=== PATIENT | female | born 1950 | race Caucasian/White ===

== ENCOUNTER 2023-07-17 19:42 | Emergency (ER) | payer MEDICARE ==
[~2023-07-17] VITALS: Ht 162.6 cm; Wt 63.5 kg
[2023-07-17 22:29] LABS: HEMOGLOBIN 12.6 g/dL (12.0-18.0); MCHC 34.3 g/dl (30-36)
[2023-07-17 22:32] LABS: BASOPHILS 0.2 % (0-2); EOSINOPHILS 0.1 % (0-6); HEMATOCRIT 36.7 % (35.0-50.0); LYMPHOCYTES 19.3 % (24-44); MCH 32.7 (27-36); MCV 95.2 fl (81-99); MONOCYTES 16.6 % (0-12); NEUTROPHILS 63.8 % (39-80); PLATELET COUNT 202 K/uL (140-440); RBC 3.85 M/ul (4.3-5.7); RDW 13.1 (10.5-15.0)
[2023-07-17 22:45] LABS: ALBUMIN 3.7 g/dL (3.4-5.0); ALBUMIN/GLOBULIN RATIO 1.06 (1.1-2.4); ANION GAP 10.7 (7-21); BILIRUBIN, TOTAL 0.5 ng/dL (0.2-1.0); BUN/CREATININE RATIO 23.44 (6.0-28.6); CALCIUM 9.7 mg/dL (8.5-10.1); CREATININE, SERUM 1.45 mg/dL (0.55-1.02); POTASSIUM 3.7 mmol/L (3.5-5.1); PROTEIN, TOTAL 7.2 g/dL (6.4-8.2)
[2023-07-17 22:56] LABS: BILIRUBIN, URINE NEGATIVE (negative); BLOOD/HGB, URINE NEGATIVE (Negative); KETONE, URINE NEGATIVE (Negative); LEUK ESTERASE, URINE NEGATIVE (negative); NITRITE, URINE POSITIVE (negative); PH, URINE 5.5 (5-7)
[2023-07-17 23:01] LABS: EPITHELIAL CELLS, URINE SQUAMOUS 1+ /lpf (0-1+)
[2023-07-17 23:02] LABS: BACTERIA, URINE RARE /hpf (negative); CASTS, URINE NONE SEEN \\lpf; CRYSTALS, URINE NONE SEEN (0-1+); REFLEX CULTURE, URINE No (No); WHITE BLOOD CELLS, URINE 0-1 /HPF (0-5)
[2023-07-17] MEDS ORDERED: NITROFURANTOIN MONOHYD MACROCR 100 MG CAP PO ONE (23:15)
[2023-07-17] MEDS ORDERED: MACROBID 100 M100 MG PO (23:16)
[2023-07-17 23:23] VITALS: BP 168/74
--- NOTE | 2023-07-18 21:06 | EKG ---
[facility] [address] [place] [address] Signed Atrial-paced rhythm with prolonged AV conduction Abnormal ECG No previous ECGs available Confirmed by Rush Hopson MD () on 07/18/2023 9:05:53 PM Electronically Signed By: RUSH HOPSON MD 07/18/232105 PATIENT NAME: BOWEN BARNETT Electrocardiogram DATE OF : 48 PHYSICIAN: RUSH HOPSON MD REPORT #: [id number] REPORT IS CONFIDENTIAL AND NOT TO BE RELEASED WITHOUT AUTHORIZATION
== END 2023-07-17 23:23 | disposition home or self-care (01) ==
LOC: ED 19:42
PROVIDERS: Internal Medicine
DX: N39.0 Urinary tract infection, site not specified (principal); Z66 Do not resuscitate; G30.9 Alzheimer's disease, unspecified; F02.80 Dementia in other diseases classified elsewhere, unspecified severity, without behavioral disturbance, psychotic disturbance, mood disturbance, and anxiety; Z88.5 Allergy status to narcotic agent; Z88.0 Allergy status to penicillin
CPT/HCPCS: 36415; 80053; 81001; 83735; 84484; 85025; 87088; 93005; 93010; 99285-25

== ENCOUNTER 2023-11-10 12:51 | Emergency (ER) | payer MEDICARE ==
[~2023-11-10] VITALS: Ht 162.6 cm; Wt 70.0 kg
[~2023-11-10 12:51] MED LIST: MACROBID 100 M100 MG PO
[2023-11-10] MEDS ORDERED: LEVOTHYROXINE75 MC1 PO (13:01)
[2023-11-10] MEDS ORDERED: CRANBERRY250 MG PO (13:01)
[2023-11-10] MEDS ORDERED: LOSARTAN POTASS50 MG PO (13:02)
[2023-11-10] MEDS ORDERED: METOPROLOL SUCC25 MG PO (13:02)
[2023-11-10] MEDS ORDERED: VITAMIN D250 MC1 PO (13:02)
[2023-11-10] MEDS ORDERED: TYLENOL325 MG PO (13:03)
[2023-11-10] MEDS ORDERED: KEPPRA750 MG PO (13:03)
[2023-11-10] MEDS ORDERED: QUETIAPINE FUMA50 MG PO (13:04)
[2023-11-10 14:06] VITALS: BP 179/49
== END 2023-11-10 14:06 | disposition home or self-care (01) ==
LOC: ED 12:51
DX: T17.928A Food in respiratory tract, part unspecified causing other injury, initial encounter (principal); W44.F3XA Food entering into or through a natural orifice, initial encounter; I10 Essential (primary) hypertension; E03.9 Hypothyroidism, unspecified; F03.90 Unspecified dementia, unspecified severity, without behavioral disturbance, psychotic disturbance, mood disturbance, and anxiety; Z88.5 Allergy status to narcotic agent; Z88.8 Allergy status to other drugs, medicaments and biological substances; Z79.890 Hormone replacement therapy; Z79.899 Other long term (current) drug therapy
CPT/HCPCS: 99283

== ENCOUNTER 2024-10-04 21:17 | Emergency (ER) | payer MEDICARE ==
[~2024-10-04] VITALS: Ht 162.6 cm; Wt 66.1 kg
[~2024-10-04 21:17] MED LIST changes: +CRANBERRY250 MG PO; +KEPPRA750 MG PO; +LEVOTHYROXINE75 MC1 PO; +LOSARTAN POTASS50 MG PO; +METOPROLOL SUCC25 MG PO; +QUETIAPINE FUMA50 MG PO; +TYLENOL325 MG PO; +VITAMIN D250 MC1 PO
[2024-10-04] MEDS ORDERED: NORVASC5 MG PO (21:26)
[2024-10-04] MEDS ORDERED: COL-RITE100 MG PO (21:26)
[2024-10-04 21:41] LABS: BASOPHILS 0.3 % (0-2); EOSINOPHILS 0.6 % (0-6); HEMATOCRIT 32.6 % (35.0-50.0); HEMOGLOBIN 11.7 g/dL (12.0-18.0); LYMPHOCYTES 22.7 % (24-44); MCHC 35.8 g/dl (30-36); MONOCYTES 9.1 % (0-12); NEUTROPHILS 67.3 % (39-80); PLATELET COUNT 220 K/uL (140-440); RBC 3.44 M/ul (4.3-5.7); RDW 12.6 (10.5-15.0)
[2024-10-04 22:01] LABS: ALBUMIN 3.4 g/dL (3.4-5.0); ALBUMIN/GLOBULIN RATIO 1.26 (1.1-2.4); ANION GAP 10.3 (7-21); BILIRUBIN, TOTAL 0.4 mg/dL (0.2-1.0); BUN/CREATININE RATIO 16.4 (6.0-28.6); CALCIUM 8.8 mg/dL (8.5-10.1); CREATININE, SERUM 1.89 mg/dL (0.55-1.02); MAGNESIUM 2.3 mg/dL (1.8-2.4); POTASSIUM 4.3 mmol/L (3.5-5.1); PROTEIN, TOTAL 6.1 g/dL (6.4-8.2)
[2024-10-04 22:30] VITALS: BP 121/63
--- NOTE | 2024-10-06 07:26 | EKG ---
[facility] [address] [facility] [place] [address] Signed AV dual-paced rhythm with frequent ventricular-paced complexes Abnormal ECG No previous ECGs available Confirmed by Maria Guadalupe Blanco MD ([id number]) on 10/06/2024 7:26:25 AM Electronically Signed By: MARIA GUADALUPE BLANCO MD 10/06/24 0726 PATIENT NAME: BOWEN BARNETT Electrocardiogram DATE OF : 48 PHYSICIAN: MARIA GUADALUPE BLANCO MD REPORT #: [id number] REPORT IS CONFIDENTIAL AND NOT TO BE RELEASED WITHOUT AUTHORIZATION
== END 2024-10-04 22:30 | disposition home or self-care (01) ==
LOC: ED 21:17
PROVIDERS: Family Medicine
DX: R09.89 Other specified symptoms and signs involving the circulatory and respiratory systems (principal); I10 Essential (primary) hypertension; E03.9 Hypothyroidism, unspecified; Z79.899 Other long term (current) drug therapy; Z88.5 Allergy status to narcotic agent; Z88.8 Allergy status to other drugs, medicaments and biological substances
CPT/HCPCS: 36415; 80053; 83735; 85025; 93005; 93010; 99285

== ENCOUNTER 2025-01-15 18:51 | Observation (INO) | payer MEDICARE, OTHER ==
[~2025-01-15] VITALS: Ht 162.6 cm; Wt 65.2 kg
[~2025-01-15 18:51] MED LIST changes: +COL-RITE100 MG PO; +COZAAR100 MG PO; -LEVOTHYROXINE75 MC1 PO; +LEVOTHYROXINE75 MCG PO; -LOSARTAN POTASS50 MG PO; +NORVASC10 MG PO
[2025-01-15 19:09] LABS: BASOPHILS 0.2 % (0.1-1.2); EOSINOPHILS 1.4 % (0.7-5.8); LYMPHOCYTES 22.8 % (19.3-51.7); MCH 33.2 PG (25.6-32.2); MCHC 33.8 g/dL (32.2-35.5); MCV 98.3 fL (79.4-94.8); MONOCYTES 9.8 % (4.7-12.5); NEUTROPHILS 65.4 % (34.0-71.1); RBC 3.46 M/uL (3.93-5.22)
[2025-01-15 19:23] LABS: INR 1.04 (0.80-1.30); PROTIME 12.9 Sec (11.2-14.2)
[2025-01-15 19:25] LABS: ALT (SGPT) 22.0 U/L (14-59); AST (SGOT) 12.0 U/L (15-37); GLOMERULAR FILTRATION RATE,EST 42.0 mL/min (>60); PROTEIN, TOTAL 6.4 g/dL (6.4-8.2); UREA NITROGEN 34.0 mg/dL (7-18)
[2025-01-15 20:17] LABS: BLOOD/HGB, URINE NEGATIVE (Negative); KETONE, URINE NEGATIVE (Negative); LEUK ESTERASE, URINE SMALL (negative); NITRITE, URINE POSITIVE (negative)
[2025-01-15 20:22] LABS: EPITHELIAL CELLS, URINE SQUAMOUS 1+ /lpf (0-1+)
[2025-01-15 20:23] LABS: BACTERIA, URINE 3+ /hpf (negative); CASTS, URINE NONE SEEN \\lpf; CRYSTALS, URINE NONE SEEN (0-1+); REFLEX CULTURE, URINE Yes (No)
[2025-01-15] MEDS ORDERED: AZITHROMYCIN 500 MG in DEXTROSE 5% 250 ML IV ONE (21:15)
[2025-01-15] MEDS ORDERED: ASPIRIN 81 MG CHEW PO ONE (21:15)
[2025-01-15] MEDS ORDERED: CLOPIDOGREL BISULFATE 75 MG TAB PO ONE (21:15)
[2025-01-15 22:04] VITALS: BP 158/64
[2025-01-15] MEDS ORDERED: levETIRAcetam 500 MG TAB PO SCH (22:07)
[2025-01-15] MEDS ORDERED: ACETAMINOPHEN 325 MG TAB PO PRN (22:15)
[2025-01-15] MEDS ORDERED: SODIUM CHLORIDE 0.9% 1,000 ML IV SCH (22:45)
--- NOTE | 2025-01-15 22:46 | NUR ---
PT ADMITTED FROM THE ER WITH STROKE LIKE SYMPTOMS, PNA, AND A UTI. PT IS PLEASENTLY CONFUSED, A&OX2. VSS. NIHSS WAS DIFFICULT DUE TO PT'S CONFUSION AND THEY WERE UNABLE TO FOLLOW DIRECTIONS FULLY. IV ABX INFUSING PER ORDERS. BED ALARM ON. PT HARD OF HEARING AND ONLY READS LIPS. SAFETY PRECAUTIONS MAINTAINED. CALL LIGHT WITHIN REACH. WILL CONTINUE TO MONITOR.
--- NOTE | 2025-01-15 23:03 | NUR ---
NIHSS SCORE OF 5. PT UP X1 TO BSC. WILL CONTINUE TO MONTIOR.
--- NOTE | 2025-01-15 23:11 | NUR ---
PT ALERT TO SELF, [place], READS LIPS, UNABLE TO STATE TOWN "YES, MY NAME IS BOWEN, NON, IM NOT IN [place] OR [place], I USED TO LIVE IN A HOUSE BUT NOW I LIVE IN AN APRTMENT." UNABLE TO ANSWER MOST QUESTIONS NEEDED FOR MRI EXAM QUESTIONAIRE. MOES ALL EXTREMITEIS WELL, 1PA TO BSC, TOLERATED WELL, VERY LIGHT DEFICEIT L SIDE. IVF INFUSING LAC. ON ROOM AIR, LUNGS CLEAR BUT DIM AT BASES, ABD SOFT, STATED LBM 08/12. CALL LIGHT AT BEDSIDE, TOLERATING LIQUIDS WELL, DENIES SOB WITH EXERTION, NO CP. FALL AND SEIZURE PRECAUTIONS IN PLACE
[2025-01-16] VITALS (12 sets, daily range): BP systolic 145–172; BP diastolic 51–76
--- NOTE | 2025-01-16 00:06 | NUR ---
BED ALARM ANSWERED. PT NEEDED TO USE BATHROOM. SPRING FITTER 1PA TO BSC. PT VOIDED AND ASSISTED BACK TO BED. SPRING FITTER PLACED PUREWICK PER RN ZOË REQUEST. PT STATES NO FURTHER NEEDS AT THIS TIME. CALL LIGHT WITHIN REACH AND BED ALARM ON.
--- NOTE | 2025-01-16 00:43 | NUR ---
BED ALRM WAS GOING OFF, IMPULSIVE, ON ROOM AIR. UP TO BSC 1PA, GENERALIZED WEAKNESS. BACK TO BED. PURE WICK WAS APPLIED A FEW MINUTES AGO. CARES EXPLAINED, [place], READS LIPS. IVF INFUSING AT THIS TIME, REPOSITIONS SELF IN BED. TELE#[address] PACED RHYTHM
--- NOTE | 2025-01-16 01:44 | NUR ---
SONOGRAM TECHNICIAN OBTAINED VITALS AND I&O. PT REQUESTING WARM BLANKET. SONOGRAM TECHNICIAN BROUGHT PT WARM BLANKET. NO FURTHER NEEDS STATED AT THIS TIME. CALL LIGHT WITHIN REACH AND BED ALARM ON.
--- NOTE | 2025-01-16 03:13 | NUR ---
AWAKE, ALARMS GOING OFF, TRIED TO GET A WHITE BOARD, PT STATED "CAN YOU READ THAT TO ME". IVF INFUSING W/O PROBLEMS, PUREWICK IN PLACE. ALL CARES EXPLAINED TO PT. PT VERY [place]. INSTRUCTIONS EXPLAINED SEVERAL TIMES BY ROOFING SALES REPRESENTATIVE UNKNOWN HOW MUCH PT UNDERSTANDING.
[2025-01-16 05:48] LABS: BASOPHILS 0.2 % (0.1-1.2); EOSINOPHILS 2.7 % (0.7-5.8); LYMPHOCYTES 30.2 % (19.3-51.7); MCH 33.4 PG (25.6-32.2); MCHC 34.2 g/dL (32.2-35.5); MCV 97.7 fL (79.4-94.8); MONOCYTES 10.7 % (4.7-12.5); NEUTROPHILS 56.0 % (34.0-71.1); RBC 3.50 M/uL (3.93-5.22)
--- NOTE | 2025-01-16 05:54 | NUR ---
cooperative with assessments, vitals and lab draws. purewick in place, draining cloudy yellow urine. Pt tolerating liquids well, went back to sleep. Bed alarms in place
[2025-01-16 06:08] LABS: ALT (SGPT) 16.0 U/L (14-59); AST (SGOT) 14.0 U/L (15-37); CHOLESTEROL/HDL RATIO 2.6; GLOMERULAR FILTRATION RATE,EST 48.0 mL/min (>60); LDL CHOLESTEROL 95.0 mg/dL (< 129); NON-HDL CHOLESTEROL 107.0; PHOSPHORUS, INORGANIC 3.4 mg/dL (2.5-4.9); PROTEIN, TOTAL 6.2 g/dL (6.4-8.2); UREA NITROGEN 32.0 mg/dL (7-18); VLDL CHOLESTEROL 12.0
--- NOTE | 2025-01-16 06:20 | NUR ---
per jorge luis in imaging, pt has a pacemaker-unable to complete mri. primary rn made aware.
[2025-01-16] MEDS ORDERED: LEVOTHYROXINE SODIUM 75 MCG TAB PO SCH (07:00)
--- NOTE | 2025-01-16 07:28 | NUR ---
RECIEVED SHIFT REPORT, PT RESTING IN BED, CALL LIGHT IN REACH. BED ALARM FOR PT SAFETY.
--- NOTE | 2025-01-16 07:35 | NUR ---
MORNING ASSESSMENT COMPLETE. PT IS AWAKE IN BED, PT HAS REMOVED SHE WRAP AND TOWEL PROTECTING IV THAT WAS PLACED BY ETL DATA ARCHITECT. THIS RN PLACED A TEDHOE OVER THE IV SITE. PT ORIENTED TO SELF. ALERT, NOT WILLING TO FOLLOW COMMANDS. DENIES NEEDS AT THIS TIME. CALL LIGHT IN REACH. BED ALARM FOR PT SAFETY.
[2025-01-16] MEDS ORDERED: ASPIRIN 81 MG CHEW PO SCH (08:00)
--- NOTE | 2025-01-16 08:30 | NUR ---
PT ATTEMPTING TO GET OUT OF BED, THIS RN IN ROOM. PT STATES SHES TRYING TO GET OUT OF HERE. DISCUSSED WITH PT HER POC, PT IS [place] AND UNABLE TO ASSESS WHAT SHE IS RETAINING. PLACED PT INTO RECLINER, BREAKFAST SET UP. CHAIR ALARM ON FOR PT SAFETY. CALL LIGHT IN REACH.
--- NOTE | 2025-01-16 08:40 | NUR ---
PT ATTEMPTING TO GET OUT OF CHAIR, SEJAL CORDERO IN ROOM TO GET PT BACK TO BED.
[2025-01-16] MEDS ORDERED: METOPROLOL SUCCINATE 25 MG TABCR PO SCH (09:00)
[2025-01-16] MEDS ORDERED: LOSARTAN POTASSIUM 50 MG TAB PO SCH (09:00)
[2025-01-16] MEDS ORDERED: CLOPIDOGREL BISULFATE 75 MG TAB PO SCH (09:00)
[2025-01-16] MEDS ORDERED: AZITHROMYCIN 500 MG in DEXTROSE 5% 250 ML IV SCH ×2 (09:00→21:00)
--- NOTE | 2025-01-16 09:14 | NUR ---
PT RESTING IN BED, ECHO BEING DONE AT THIS TIME.
[2025-01-16] MEDS ORDERED: ACETAMINOPHEN 325 MG TAB PO PRN (09:45)
--- NOTE | 2025-01-16 09:54 | NUR ---
USED POCKETTALKER WITH PT. PT ABLE TO HEAR BETTER STILL UNCERTAIN ABOUT HOW MUCH PATIENT UNDERSTANDS, BUT PT IS ABLE TO FOLLOW COMMANDS.
--- NOTE | 2025-01-16 10:15 | NUR ---
FALL MATS PLACED IN PTS ROOM FOR PT SAFETY.
--- NOTE | 2025-01-16 10:56 | NUR ---
PT NOT AVAILABLE FOR VISIT. PROVIDED PRAYER.
--- NOTE | 2025-01-16 11:22 | NUR ---
IV ALARMING, NEW BAG OF FLUIDS STARTED. PATIENT SITTING WITH 1:1 NAC AT THIS TIME, SHE IS IMPULSIVE AND GETTING UP WITHOUT CALLING APPROPRIATELY, FOR PATIENT SAFETY. CALL LIGHT IS WITHING REACH.
--- NOTE | 2025-01-16 11:29 | NUR ---
TALKED WITH CONSUELO (DAUGHTER) OF PATIENT. PERSONAL HEALTH INFORMATION REVIEWED. PATIENT L[facility] AT [facility]. PATIENT IS ABLE TO AMUBLATE TO THE CAFETERIA WITH WALKER. 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 SHE DOES NOT USE OXYGEN OR CPAP. PATIENT PCP IS PRADIP. DAUGHTER DENIES ANY DIFFCULTY DOING UTLITIES OR OBTAINING FOOD. NO CM NEEDS AT THIS TIME.
--- NOTE | 2025-01-16 11:34 | NUR ---
PATIENT IN CHAIR AT THIS TIME. MEDICAL TECHNICIAN ASSISTANT ASSISTED PATIENT TO BATHROOM AND THEN BACK TO CHAIR. CALL LIGHT WITHIN REACH, NO FURTHER NEEDS.
--- NOTE | 2025-01-16 11:52 | NUR ---
PATIENT IN CHAIR AT THIS TIME. ACUTE CARE OCCUPATIONAL THERAPIST ASSISTED PATIENT TO BATHROOM AND THEN BACK TO CHAIR. CALL LIGHT WITHIN REACH, NO FURTHER NEEDS.
[2025-01-16] MEDS ORDERED: PHARMACY RENAL DOSE ADJUSTMENT 1 DOSE MISC PO SCH (12:00)
--- NOTE | 2025-01-16 12:36 | NUR ---
PT SITTING IN RECLINER, LUNCH TRAY SET UP. STATES "NOT HUNGRY". SEJAL CORDERO IN ROOM 1:1. CHAIR ALARM ON FOR PT SAFETY. CALL LIGHT IN REACH.
--- NOTE | 2025-01-16 12:57 | NUR ---
PATIENT IN CHAIR AT THIS TIME. CORPORATE COMMUNICATIONS ASSOCIATE CHARTED VITALS AND I&O'S. CALL LIGHT WITHIN REACH, SITTER IN ROOM, NO FURTHER NEEDS AT THIS TIME.
--- NOTE | 2025-01-16 14:00 | NUR ---
SPEECH IS IN ROOM, SEJAL CORDERO 1:1, FALL PRECAUTIONS IN PLACE.
--- NOTE | 2025-01-16 14:03 | NUR ---
PATIENT IN CHAIR AT THIS TIME. THIS TUBULAR RIVETER ASSISTED PATIENT TO BATHROOM AND THEN BACK TO CHAIR. CALL LIGHT WITHIN REACH, SITTER IN ROOM, NO FURTHER NEEDS.
--- NOTE | 2025-01-16 14:19 | NUR ---
PATIENT IN CHAIR AT THIS TIME. SAT ACT INSTRUCTOR ASSISTED PATIENT TO BATHROOMAND THEN BACK TO CHAIR. CALL LIGHT WITHIN REACH, SITTER IN ROOM AT THIS TIME, NO FURTHER NEEDS.
[2025-01-16] MEDS ORDERED: TYLENOL325 MG PO (14:44)
--- NOTE | 2025-01-16 14:45 | NUR ---
MED REC COMPLETE
--- NOTE | 2025-01-16 15:13 | NUR ---
UR CLINICAL REVIEW: 2 MN ASHLEY, MEETS OBS FOR CVA, PNEUMONIA AND UTI IV FLUIDS, IV ANTIBIOTICS, NIHSS- 8 IN ER. PT/OT/ST WEINER, CARDIAC MONITORING MEDICARE OBS 01/15/2025 @ 2113 ORDER MATCHES REG NO AUTH REQUIRED PER MEDICARE RULES DC TO HOME WHEN MEDICALLY STABLE.
--- NOTE | 2025-01-16 16:09 | NUR ---
PATIENT IN CHAIR AT THIS TIME. THIS MEDICAL OFFICE TECHNOLOGIST ASSISTED PATIENT TO BATHROOM AND THEN BACK TO CHAIR. CALL LIGHT WITHIN REACH, NO FURTHER NEEDS AT THIS TIME.
--- NOTE | 2025-01-16 16:43 | NUR ---
CALLED EMILIANA REGARDING PT INCREASE IN BATHROOM USE. PYRIDIUM SUGGESTED. MD WILL PUT IN ORDERS.
--- NOTE | 2025-01-16 16:44 | NUR ---
PT SITTING IN WAYNERCONSUELO CNA IN ROOM 1:1. FALL PRECAUTIONS IN PLACE.
[2025-01-16] MEDS ORDERED: PHENAZOPYRIDINE HCL 100 MG TAB PO PRN (16:45)
--- NOTE | 2025-01-16 17:41 | NUR ---
PATIENT IN CHAIR AT THIS TIME. DOUGH MIXING MACHINE OPERATOR CHARTED VITALS AND I&O'S. CALL LIGHT WITHIN REACH, SITTER IN ROOM, NO FURTHER NEEDS AT THIS TIME.
--- NOTE | 2025-01-16 18:15 | NUR ---
pt sitting in recliner, awake watching tv. jomar steinberg at bedside 1:1. fall precautions in place.
--- NOTE | 2025-01-16 18:24 | NUR ---
PATIENT IN CHAIR AT THIS TIME. TECHNICAL ASSISTANCE CONSULTANT ASSISTED PATIENT TO BATHROOM AND THEN BACK TO CHAIR. CALL LIGHT WITHIN REACH, NO FURTHER NEEDS, SITTER IN ROOM.
--- NOTE | 2025-01-16 19:29 | NUR ---
GOT REPORT FROM DAY SHIFT NURSE.
--- NOTE | 2025-01-16 20:46 | NUR ---
INTO CHECK ON PATIENT, PATIENT IS VERY [place]. IV ANTIBIOTICS RUNNING, IV FLUIDS RUNNING. PATIENT IS A 1:1. PATIENT IS VERY IMPULSIVE TO GET UP TO THE BATHROOM. PATIENT HAS SCDS ON AND RUNNING. PATIENT TOOK EVENING MEDICATIONS WITH NO PROBLEM. BED IN LOW POSITION, PADS ON FLOOR, CALL LIGHT WITHIN REACH. PATIENT IS A 1 PERSON ASSIST. RA. PATIENT IS CONFUSED AND RESTATES THE SAME INFORMATION OVER AND OVER.
[2025-01-16] MEDS ORDERED: QUETIAPINE FUMARATE 100 MG TAB PO SCH (21:00)
[2025-01-16] MEDS ORDERED: levETIRAcetam 500 MG TAB PO SCH (21:00)
--- NOTE | 2025-01-16 21:55 | EKG ---
[facility] [address] [place] [address] Signed AV dual-paced rhythm Abnormal ECG When compared with ECG of 04-OCT-2024 21:19, Vent. rate has increased BY 8 BPM Confirmed by Rush Hopson MD () on 01/16/2025 9:54:45 PM Electronically Signed By: RUSH HOPSON MD 01/16/252154 PATIENT NAME: BOWEN BARNETT Electrocardiogram DATE OF : 48 PHYSICIAN: RUSH HOPSON MD REPORT #: [id number] REPORT IS CONFIDENTIAL AND NOT TO BE RELEASED WITHOUT AUTHORIZATION
--- NOTE | 2025-01-16 22:14 | NUR ---
IV ANTIBIOTIC STILL RUNNING. PATIENT NOT SLEEPING, MOVING AROUND IN BED. PATIENT HAS RESPIRATORY MEDICINE PHYSICIAN IN ROOM WITH HER. BED LOW POSITION. MATS ON FLOOR.
--- NOTE | 2025-01-16 22:49 | NUR ---
PHONE CALL TO . PATIENT IS STARTING TO KICK AND BECOME COMBATIVE. HE WILL PUT IN AN ORDER FOR ATIVAN TO SEE IF WE CAN GET PATIENT TO CALM DOWN.
--- NOTE | 2025-01-16 22:51 | NUR ---
PHONE CALL WITH DR.HILBORN JUAN TO DC TELE LEADS ARE NOT STAYING ON WITH PATIENT.
[2025-01-16] MEDS ORDERED: LORazepam 0.5 MG TAB PO PRN (23:00)
--- NOTE | 2025-01-17 00:01 | NUR ---
Taken over care. In bed, room air, IVF infusing w/o problems. Purewick in place. eyes closed, no s/sx distress
--- NOTE | 2025-01-17 00:16 | NUR ---
Pt IVF infusing w/o problems. in bed, leaning towards Right side, muttering, restless. 1:1 per agitation at this time
--- NOTE | 2025-01-17 01:07 | NUR ---
restless, moving in bed, trying to get out at times. [place], semiredirectable, coop with second assessment. IVF infusing LAC. 1:1 per safety , Ativan mildly effective
--- NOTE | 2025-01-17 04:58 | NUR ---
resating, eyes closed, calm, quiet, ivf infusing w/o problems
[2025-01-17 05:28] VITALS: BP 120/61
[2025-01-17 05:31] LABS: BASOPHILS 0.2 % (0.1-1.2); EOSINOPHILS 1.8 % (0.7-5.8); LYMPHOCYTES 17.1 % (19.3-51.7); MCH 33.2 PG (25.6-32.2); MCHC 34.6 g/dL (32.2-35.5); MCV 96.2 fL (79.4-94.8); MONOCYTES 11.3 % (4.7-12.5); NEUTROPHILS 69.3 % (34.0-71.1); RBC 3.13 M/uL (3.93-5.22)
[2025-01-17 05:50] LABS: GLOMERULAR FILTRATION RATE,EST 65.0 mL/min (>60); PHOSPHORUS, INORGANIC 2.5 mg/dL (2.5-4.9); UREA NITROGEN 17.0 mg/dL (7-18)
[2025-01-17] MEDS ORDERED: LEVOTHYROXINE SODIUM 75 MCG TAB PO SCH (06:00)
[2025-01-17 06:41] VITALS: BP 120/61
--- NOTE | 2025-01-17 06:42 | NUR ---
Resting, eyes closed, no s/sx distress. ivf infusing LAC. pt calm, quiet, bed alrms in place, 1:1 per safety due to increased agitation and restlessness earlier on shift. [place]
--- NOTE | 2025-01-17 07:09 | NUR ---
0600 Levothroid med not given, pt very drowsy, sleepy, not keeping eyes open when repositioned. Smiles and closes eyes. Received Ativan earlier on shift and was very restless and agitated til close to 0400. Noc charge nurse and incoming primary RN made aware. AM RN will notify
--- NOTE | 2025-01-17 07:29 | NUR ---
RECIEVED SHIFT REPORT. PT IS RESTING IN BED, EYES CLOSED. BREATHING EVEN AND UNLABORED. CALL LIGHT IN REACH. BED ALARM ON. FALL PRECAUTIONS IN PLACE.
[2025-01-17] MEDS ORDERED: QUETIAPINE FUMARATE 25 MG TAB PO SCH (09:00)
--- NOTE | 2025-01-17 09:08 | NUR ---
PT IS RESTING IN BED, ASLEEP, BREATHING EVEN AND UNLABORED. FALL PREVENTION IN PLACE.
--- NOTE | 2025-01-17 09:52 | NUR ---
IVF FINISHED. PT WOKE FROM PUMP BEEPING. PT FELL BACK ASLEEP. FALL PRECAUTIONS IN PLACE.
--- NOTE | 2025-01-17 10:22 | NUR ---
PT IN BATHROOM WITH SEJAL CHATTERJEE AND SEJAL CORDERO. PT IS AGITATED TELLING STAFF TO GET OUT OF THE ROOM. PT IS REFUSING TO GET DRESSED INTO A GOWN AND WEAR A DEPENDS. AFTER GETTING PT TO SIT CONSUELO WAS ABLE TO GET A BRIEF ON. THIS RN AGREED TO GET PT DRESSED INTO PERSONAL CLOTHING. PT IS CONFUSED AND REPEATS SAYING "ITS NOT MY PROBLEM, NOT HER PROBLEM, JUST GET HER OUT OF HERE". PT BEGAN SWING ARMS AT CONSUELO. THIS RN IN BATHROOM TO TALK TO PT. PT NOT FOLLOWING COMMANDS. AFTER PT WAS DRESSED THIS RN AND CONSUELO WAS ABLE TO AMBULATE PT TO THE CHAIR GET SET UP FOR BREAKFAST. MEDS GIVEN W/O DIFFICULTY. CONSUELO IN ROOM 1:1. FALL PRECAUTIONS IN PLACE.
[2025-01-17 10:46] VITALS: BP 146/64
--- NOTE | 2025-01-17 10:48 | NUR ---
PATIENT IN CHAIR AT THIS TIME. MANAGER BUSINESS BANKING CHARTED VIALS AND I&O'S. CALL LIGHT WITHIN REACH, SITTER IN ROOM, NO FURTHER NEEDS AT THIS TIME.
[2025-01-17 10:53] VITALS: BP 146/64
--- NOTE | 2025-01-17 11:21 | NUR ---
PATIENT IN CHAIR AT THIS TIME. BLOOD TYPER ASSISTED PATIENT TO BATHROOM AND THEN BACK TO BED. CALL LIGHT WITHIN REACH, NO FURTHER NEEDS.
--- NOTE | 2025-01-17 12:55 | NUR ---
PT SITTING IN RECLINER, SITTER AT BEDSIDE. FALL PRECAUTIONS IN PLACE.
[2025-01-17] MEDS ORDERED: AZITHROMYCIN250 MG PO (13:28)
[2025-01-17] MEDS ORDERED: CEFDINIR300 MG PO (13:30)
[2025-01-17] MEDS ORDERED: ASPIRIN81 MG PO (13:32)
[2025-01-17] MEDS ORDERED: PLAVIX75 MG PO (13:33)
[2025-01-17] MEDS ORDERED: LIPITOR40 MG PO (13:33)
--- NOTE | 2025-01-17 13:40 | NUR ---
PT IS AWAKE IN RECLINER, WATCHING TV. CONSUELO WAFFLE MACHINE OPERATOR IS 1:1. FALL PRECAUTION.
[2025-01-17 13:41] VITALS: BP 109/79
--- NOTE | 2025-01-17 13:42 | NUR ---
PATIENT IN CHAIR AT THIS TIME. HEEL CUTTER CHARTED VITALS AND I&O'S. CALL LIGHT WITHIN REACH, NO FURTHER NEEDS.
[2025-01-17] MEDS ORDERED: ASPIRIN 81 MG CHEW PO ONE (13:45)
[2025-01-17] MEDS ORDERED: CLOPIDOGREL BISULFATE 75 MG TAB PO ONE (13:45)
--- NOTE | 2025-01-17 13:50 | NUR ---
PT REQUESTED TO LAY DOWN ON THE COUCH. SEJAL CORDERO ASSISTED PT. WARM BLANKET PROVIDED.
--- NOTE | 2025-01-17 13:53 | NUR ---
FAXED PAPERWORK TO [facility].
[2025-01-22] MEDS ORDERED: MACROBID 100 M100 MG PO (14:03)
== END 2025-01-17 14:26 | disposition home or self-care (01) ==
LOC: ED 18:51 → MS 18:53
PROVIDERS: Emergency Medicine; Family Medicine; ADMIT Family Medicine; ATTEND Family Medicine
DX: R53.1 Weakness (principal); J18.9 Pneumonia, unspecified organism; N39.0 Urinary tract infection, site not specified; E03.9 Hypothyroidism, unspecified; F03.90 Unspecified dementia, unspecified severity, without behavioral disturbance, psychotic disturbance, mood disturbance, and anxiety; I10 Essential (primary) hypertension; Z66 Do not resuscitate; Z87.891 Personal history of nicotine dependence; Z79.890 Hormone replacement therapy; Z79.899 Other long term (current) drug therapy; Z88.5 Allergy status to narcotic agent; Z88.8 Allergy status to other drugs, medicaments and biological substances; Z95.0 Presence of cardiac pacemaker; Z86.73 Personal history of transient ischemic attack (TIA), and cerebral infarction without residual deficits; Z86.69 Personal history of other diseases of the nervous system and sense organs
CPT/HCPCS: 36415; 70450; 70496; 70498; 71045; 80048; 80053; 80061; 81001; 83036; 83735; 84100; 85025; 85610; 85730; 92523; 93005; 93010; 93306; 96361; 96365; 96366; 96367; 96374; 96375; 97162; 97166; 99285-25; A9270; G0378; J0456; J0696; J7030; J7060; Q9967